=== PATIENT | male | born 2005 | race Caucasian/White ===

== ENCOUNTER 2025-01-28 11:52 | Emergency (ER) | payer OTHER, SELFPAY ==
[2025-01-28 11:53] VITALS: BP 92/75; PULSE 81; RESP 16; TEMP 35.7; O2SAT 98
[2025-01-28 11:55] VITALS: BMI 25.2
--- NOTE | 2025-01-28 12:35 | EDS_ITS ---
HPI <REMIGIO Olivares - Last Filed: 01/28/25 14:09> History of Present Illness Chief Complaint: Nausea/Vomiting/Diarrhea Narrative Narrative: Patient presenting today with abdominal discomfort, nausea, vomiting, and loose stools that started around 10 AM this morning. He reports that he has had 2-3 episodes of loose stool and 2 episodes of vomiting. He ate at a family's house for Easter yesterday but no one else seems to be sick. He denies fevers, c hills, hematemesis, blood in the stool, and urinary symptoms. He has a PMH of migraines. PFSH <REMIGIO Olivares - Last Filed: 01/28/25 14:09> PFSH Home Medications ?Medication ?Instructions ?Recorded ?Last Taken ?Type ondansetron 4 mg disintegrating 4 mg PO Q8H PRN PRN Na usea #10 tabs 01/28/25 Unknown Rx tablet Allergy/AdvReac Type Severity Reaction Status Date / Time shellfish derived Allergy Intermediate SOB Verified 01/28/25 11:55 Social History Smoking Status: Never smoker ROS <REMIGIO Olivares - Last Filed: 01/28/25 14:09> ROS ED Constitutional Constitutional ED: Denies chills or fever(s) Cardiovascular Cardiovascular: Denies chest pain Respiratory/Chest Respiratory/Chest: Denies dyspnea Gastrointestinal Gastrointestinal: Reports nausea and vomiting; Denies abdominal pain or melena Genitourinary Genitourinary ED: Denies dysuria, hematuria or urinary urgency Musculoskeletal Musculoskeletal: Denies arthralgias or myalgias Integumentary Denies rash Neurologic Neurologic: Denies weakness EXAM <REMIGIO Olivares - Last Filed: 01/28/25 14:09> Physical Exam Const Vital Signs: 01/28/25 11:53 01/28/25 12:46 01/28/25 13:00 Temperature 96.3 F L Temperature Source Temporal Pulse Rate 81 70 Respiratory Rate 16 17 70 H Blood Pressure 92/75 109/63 109/63 Blood Pressure Mean 80 78 78 Pulse Ox 98 100 Oxygen Delivery Method Room Air Room Air 01/28/25 13:59 01/28/25 14:00 Temperature 96.3 F L Temperature Source Pulse Rate 80 80 Respiratory Rate 22 H 16 Blood Pressure 102/54 L 102/54 L Blood Pressure Mean 70 70 Pulse Ox 98 98 Oxygen Delivery Method Room Air Positive well nourished, well developed and no apparent distress General Appearance ED: well developed HEENT Reports normocephalic, head/scalp atraumatic and dry mucous membranes Mouth ED: Yes dry mucous membranes Mouth: dry mucous membranes Eyes PERRL and EOMs intact bilaterally Neck full ROM and supple Chest Wall inspection of chest normal Resp normal respiratory effort and clear to auscultation bilaterally Cardio regular rate and regular rhythm GI soft to palpation, non-tender, non-distended and no masses Back/Spine normal ROM and normal to inspection Extremity normal to inspection and full ROM Neuro oriented x3, CN's II-XII intact bilaterally, moves all extremities, no focal motor deficits and no sensory deficits noted Sensorium / Orientation: awake and alert Psych mental status grossly normal and thought process normal Skin no rashes or lesions noted and no wounds <Dr. Yogesh Fletcher DO - Last Filed: 01/28/25 14:05> Physical Exam Const Vital Signs: 01/28/25 11:53 01/28/25 12:46 01/28/25 13:00 Temperature 96.3 F L Temperature Source Temporal Pulse Rate 81 70 Respiratory Rate 16 17 70 H Blood Pressure 92/75 109/63 109/63 Blood Pressure Mean 80 78 78 Pulse Ox 98 100 Oxygen Delivery Method Room Air Room Air 01/28/25 13:59 01/28/25 14:00 Temperature 96.3 F L Temperature Source Pulse Rate 80 80 Respiratory Rate 22 H 16 Blood Pressure 102/54 L 102/54 L Blood Pressure Mean 70 70 Pulse Ox 98 98 Oxygen Delivery Method Room Air [facility] <REMIGIO Olivares - Last Filed: 01/28/25 14:09> [facility] Narrative Medical decision making narrative: Patient presenting today with nausea, vomiting, and a few episodes of loose stool that occurred this morning. He does appear dry and will be given IV fluids, Zofran, and Toradol. Basic labs to be obtained to assess for leukocytosis and electrolyte derangement. His labs overall unremarkable. His abdomen is soft and nontender, given he has a nonsurgical abdomen I do not feel abdominal imaging is indicated at this time. Suspect he could have gastroenteritis. On reexamination he reports improvement of his symptoms. He has had no vomiting or diarrhea here. His friend in the room reports that this has happened to him 3-4 times in the past, usually when a test is upcoming. She thinks that he is getting stressed with his schoolwork. He does not think that there is no association. Recommended he follow-up with his PCP. I have given him a prescription for Zofran. Recommended he stay well-hydrated and he will be discharged home in stable condition. I have personally performed a face to face assessment of the patient and have reviewed the JESSICA Note. I performed a substantive portion of the visit including all aspects of the following. My agrawal findings include: History is 19-year-old male presenting to the emergency room with vomiting and diarrhea. Patient states for the past few days he has had sore throat and gene ralized viral symptoms. Today experiencing vomiting diarrhea. Friend notes that he has had the symptoms when he gets stressed with schoolwork. He states he does not believe that that is associated with this. No reported fevers. No blood in the stool. No weight loss. Exam is afebrile vital signs are stable. Well-appearing male laying in the bed. The abdomen is nonsurgical normal active bowel sounds. Medical Decison Making basic blood work is reassuring. He received IV fluids as well as Toradol and Zofran. Clinically there is a good chance that more viral. Certainly an anxiety component cannot be found. He plans on following labs. Will write for him. Lab Data Labs: Laboratory Results - last 24 hr 01/28/25 12:20 WBC 9.1 RBC 5.70 Hgb 16.1 Hct 47.8 MCV 83.9 MCH 28.2 MCHC 33.7 RDW Std Deviation 34.0 L RDW Coeff of Eder 11.2 L Plt Count 450 MPV 9.5 Immature Gran % (Auto) 0.300 Neut % (Auto) 82.3 H Lymph % (Auto) 10.5 L [place] % (Auto) 6.3 Eos % (Auto) 0.4 Baso % (Auto) 0.2 Absolute Neuts (auto) 7.5 Absolute Lymphs (auto) 0.95 Nucleated RBC % 0 Sodium 138 Potassium 4.0 Chloride 103 Carbon Dioxide 24.2 Anion Gap 11 BUN 15 Creatinine 0.93 Estim Creat Clear Calc 122.58 Est GFR (MDRD) Non-Af 121 BUN/Creatinine Ratio 15.6 Glucose 91 Calcium 8.9 <Dr. Yogesh Fletcher, DO - Last Filed: 01/28/25 14:05> [facility] Narrative Medical decision making narrative: Patient presenting today with nausea, vomiting, and a few episodes of loose stool that occurred this morning. He does appear dry and will be given IV fluids, Zofran, and Toradol. Basic labs to be obtained to assess for leukocytosis and electrolyte derangement. His abdomen is soft and nontender, given he has a nonsurgical abdomen I do not feel abdominal imaging is indicated at this time. I have personally performed a face to face assessment of the patient and have reviewed the JESSICA Note. I performed a substantive portion of the visit including all aspects of the following. My agrawal findings include: History is 19-year-old male presenting to the emergency room with vomiting and diarrhea. Patient states for the past few days he has had sore throat and generalized viral symptoms. Today experiencing vomiting diarrhea. Friend notes that he has had the symptoms when he gets stressed with schoolwork. He states he does not believe that that is associated with this. No reported fevers. No blood in the stool. No weight loss. Exam is afebrile vital signs are stable. Well-appearing male laying in the bed. The abdomen is nonsurgical normal active bowel sounds. Medical Decison Making basic blood work is reassuring. He received IV fluids as well as Toradol and Zofran. Clinically there is a good chance that more viral. Certainly an anxiety component cannot be found. He plans on following labs. Will write for him. History & Record Review Discussion w/independent historian: Patient and Friend Lab Data Attestation: I reviewed the patient's lab results. Labs: Laboratory Results - last 24 hr 01/28/25 12:20 WBC 9.1 RBC 5.70 Hgb 16.1 Hct 47.8 MCV 83.9 MCH 28.2 MCHC 33.7 RDW Std Deviation 34.0 L RDW Coeff of Eder 11.2 L Plt Count 450 MPV 9.5 Immature Gran % (Auto) 0.300 Neut % (Auto) 82.3 H Lymph % (Auto) 10.5 L [place] % (Auto) 6.3 Eos % (Auto) 0.4 Baso % (Auto) 0.2 Absolute Neuts (auto) 7.5 Absolute Lymphs (auto) 0.95 Nucleated RBC % 0 Sodium 138 Potassium 4.0 Chloride 103 Carbon Dioxide 24.2 Anion Gap 11 BUN 15 Creatinine 0.93 Estim Creat Clear Calc 122.58 Est GFR (MDRD) Non-Af 121 BUN/Creatinine Ratio 15.6 Glucose 91 Calcium 8.9 Discharge Plan Triage Chief Complaint: Nausea/Vomiting/Diarrhea ED Midlevel Provider: Nasreen Mae ED Provider: Yogesh Fletcher Dx/Rx/DC Orders Clinical Impression: Gastroenteritis Instructions: Viral Gastroenteritis Prescriptions: New ondansetron 4 mg tablet,disintegrating 4 mg PO Q8H PRN PRN (Reason: Nausea) Qty: 10 0RF Primary Care Provider: Care Physician,No Primary Referrals: Care Physician,No Primary [Primary Care Provider] - Activity Restrictions/Additional Instructions: Follow-up with PCP and return for any worsening symptoms. stay well-hydrated hydrated. Print Language: Marshallese Disposition Disposition: Home, Self Care Discharge Date/Time: 01/28/25 14:06
[2025-01-28] MEDS: 0.9% Normal Saline (1000mL) 1,000 ML 999 ML IV (12:42)
[2025-01-28] MEDS: Ondansetron 4 MG/2 ML Vial IV (12:42)
[2025-01-28 12:44] LABS: Absolute Lymphocyte Count 0.95 X10^3/uL (0.83-4.51); Absolute Neutrophil Count 7.5 X10^3/uL (2.0-7.7); Basophil# 0.02 X10^3/uL; Basophil% 0.2 % (0-1); Eosinophil# 0.04 X10^3/uL; Eosinophils% 0.4 % (0-5); Hematocrit 47.8 % (40-54); Hemoglobin 16.1 g/dL (13.0-16.5); Lymphocyte # 0.95 X10^3/ul (0.83-4.51); Lymphocyte % 10.5 % (19-41); Mean Corp Hgb Conc 33.7 g/dL (32-36); Mean Corpuscular Hgb 28.2 pg (27.0-32.0); Mean Corpuscular Volume 83.9 fL (80-94); Mean Platelet Vol. 9.5 fl (6.2-12.0); Monocyte# 0.57 X10^3/uL; Monocyte% 6.3 % (0-10); NRBC Flagged by Analyzer 0 % (0-5); Neutrophil # 7.48 X10^3/uL (2.7-7.7); Neutrophil % 82.3 % (47-70); Platelet Count 450 K/mm3 (150-450); RBC Distribution Width CV 11.2 % (11.6-14.6); White Blood Count 9.1 K/mm3 (4.4-11.0)
[2025-01-28] MEDS: Ketorolac 15 MG/ML Vial IV (12:44)
[2025-01-28 12:46] VITALS: BP 109/63; PULSE 70; RESP 17; O2SAT 100
[2025-01-28 13:00] VITALS: BP 109/63; RESP 70
[2025-01-28 13:11] LABS: Anion Gap 11 (5-15); BUN 15 mg/dL (4-19); BUN/Creat Ratio 15.6 RATIO (10-20); Calcium,Total 8.9 mg/dL (7.6-11.0); Carbon Dioxide 24.2 mmol/L (21.0-32.0); Chloride 103 mmol/L (98-108); Creatinine, Serum 0.93 mg/dL (0.70-1.20); EST Glomerular Filtration Rate 121 (>60); Estimated Creatinine Clearance 122.58 ml/min (50-250); Glucose 91 mg/dL (70-99); Sodium Level 138 mmol/L (133-145)
[2025-01-28 13:59] VITALS: BP 102/54; PULSE 80; RESP 22; O2SAT 98
[2025-01-28 14:00] VITALS: BP 102/54; PULSE 80; RESP 16; TEMP 35.7; O2SAT 98
--- NOTE | 2025-01-28 14:28 | CM.ED ---
Social Work Reason for visit: No PCP Patient confirmed that he does not have a PCP. [facility] provider list given. No further needs identified at this time. Jen Stewart, FARM EQUIPMENT ENGINE MECHANIC, DIRECT MARKETING ANALYST
== END 2025-01-28 14:06 | disposition home or self-care (01) ==
PROVIDERS: Physician Assistant; Emergency Provider Emergency Medicine; Visit Provider Emergency Medicine
DX: R11.2 Nausea with vomiting, unspecified (principal); K52.9 Noninfective gastroenteritis and colitis, unspecified
CPT/HCPCS: 80048; 85025; 96361; 96374; 96375; 99283; A4216; J2405